=== PATIENT | female | born 1965 | race Caucasian/White ===

== ENCOUNTER → 2021-01-10 | Outpatient (CLI) | payer BC ==
[2016-03-08 17:39] VITALS: BP 116/72
--- NOTE | 2021-01-10 13:55 | RAD ---
EXAM: Right foot, 2 views. HISTORY: Pain. COMPARISON: None. FINDINGS: 2 views of the right foot are obtained. There is no fracture, dislocation or subluxation. T here is no foreign body. IMPRESSION: No acute osseous finding. Electronically signed by: Marielena Sloan MD (01/10/2021 1:53 PM) [id number]
== END ==
LOC: RAD 13:14
PROVIDERS: ATTEND Family Medicine
DX: S99.921A Unspecified injury of right foot, initial encounter (principal); X58.XXXA Exposure to other specified factors, initial encounter; Y93.89 Activity, other specified; Y92.89 Other specified places as the place of occurrence of the external cause; Y99.8 Other external cause status
CPT/HCPCS: 73620